=== PATIENT | male | born 1955 | race Two or more races ===

== ENCOUNTER 2024-08-25 17:25 | Inpatient (IN) | payer OTHER ==
[~2024-08-25] VITALS: Ht 180.3 cm; Wt 88.5 kg
--- NOTE | 2024-08-25 17:36 | NUR ---
PACIENTE ALERTA Y ORIENTADO X3. REFERIDO POR DR LUZ STOCKTON PARA TRATAMIENTO Y ADMISION POR BACTERIA. SE ESTIMAN VITALES Y SE UBICA.
[2024-08-25] MEDS ORDERED: COZAAR100 MG PO (17:40)
[2024-08-25] MEDS ORDERED: HORIZANT300 MG (17:41)
[2024-08-25] MEDS ORDERED: AMLODIPINE-OLM1 EAC2 PO (17:41)
[2024-08-25] MEDS ORDERED: FAMOtidine 10 MG/ML (4ML VIAL) IV ONE (18:30)
[2024-08-25] MEDS ORDERED: VANCOMYCIN HCL 1,000 MG VIAL IV ONE (18:30)
--- NOTE | 2024-08-25 18:39 | NUR ---
SE EDUCA A PTE [facility] [place] [facility], SE MARCIA MEUSTRAS DE LABORATORIO UTILIZANDO MEDIDAS ASEPTICAS. SE COLOCA H/L KAMILLE DE EDEMA. SE ADMINISTRAN MEDICAMENTOS CHRISTIE ORDEN MEDICA.
[2024-08-25] MEDS ORDERED: CEFEPIME HCL 2,000 MG VIAL IV SCH (18:52)
[2024-08-25 18:54] LABS: HEMATOCRIT 41.5 % (39.0-48.0); HEMOGLOBIN 14.6 g/dL (13-16.00); MEAN CORPUSCULAR HEMOGLOBIN 32.3 pg (27.00-32.0); MEAN CORPUSCULAR HGB CONC 35.1 g/dl (32.0-36.0); PLATELET COUNT 192 K/uL (150-450); RED CELL DISTRIBUTION WIDTH 13.8 % (11.5-14.5)
[2024-08-25 19:02] LABS: URINE APPEARANCE Clear; URINE BILIRRUBIN Negative (NEGATIVE); URINE BLOOD Negative; URINE COLOR Yellow; URINE GLUCOSE Negative (NEGATIVE); URINE KETONE Negative (NEGATIVE); URINE LEUKOCYTE Negative; URINE NITRATE Negative; URINE PROTEIN Negative (NEGATIVE); URINE UROBILINOGEN 0.2 E.U./dl
[2024-08-25 19:07] LABS: URINE BACTERIA 7.3 uL (0.0-1933); URINE RBC 3.2 uL (0.0-20.8)
[2024-08-25 19:13] LABS: INR 1.05; PARTIAL THROMBOPLASTIN TIME 26.6 SECONDS (22.0-34.0); PROTHROMBIN TIME 11.4 SECONDS (9.0-11.5)
[2024-08-25 19:17] LABS: ALBUMIN 4.4 gm/dL (3.4-5.0); BILIRUBIN TOTAL 0.74 mg/dL (0.3-1.2); CALCIUM 9.4 mg/dL (8.5-10.1); CREATININE SERUM 1.3 mg/dL (0.70-1.30); GFR 54.73; GLOBULINA 3.9 G/DL (2.4-3.5); POTASSIUM 4.13 mEq/L (3.5-5.1); TOTAL PROTEIN 8.3 gm/dL (6.4-8.2)
[2024-08-25 19:28] LABS: URINE CAST 0.29 uL (0.0-1.40); URINE EPITHELIAL CELLS 0.9 uL (0.0-38.8); URINE WBC 1.7 uL (0.0-23.2)
[2024-08-25] MEDS ORDERED: ACETAMINOPHEN 325 MG TABLET PO PRN (20:30)
[2024-08-25] MEDS ORDERED: 0.9 % SODIUM CHLORIDE 1,000 ML IV SCH (20:30)
[2024-08-25] MEDS ORDERED: AMLODIPINE BESYLATE 5 MG TABLET PO SCH (21:00)
[2024-08-26 01:02] VITALS: BP 155/89; O2SAT 96
[2024-08-26] MEDS ORDERED: GABAPENTIN 100 MG CAPSULE PO SCH (09:00)
[2024-08-26] MEDS ORDERED: FAMOTIDINE/PF 20 MG/2 ML VIAL IV SCH (09:00)
[2024-08-26] MEDS ORDERED: LOSARTAN POTASSIUM 100 MG TABLET PO SCH (09:00)
[2024-08-26 14:58] VITALS: BP 170/94; O2SAT 95
[2024-08-26] MEDS ORDERED: ACETAMINOPHEN 500 MG GEL..CAP PO PRN (15:30)
[2024-08-26 16:00] VITALS: BP 166/88; O2SAT 97
[2024-08-27 00:37] VITALS: BP 119/65; O2SAT 96
[2024-08-27] MEDS ORDERED: CEFEPIME HCL 2,000 MG VIAL IV SCH (01:00)
[2024-08-27 08:00] VITALS: BP 157/90; O2SAT 97
[2024-08-27 17:29] VITALS: BP 158/87; O2SAT 97
[2024-08-28 00:37] VITALS: BP 164/94; O2SAT 98
[2024-08-28 08:00] VITALS: BP 146/88; O2SAT 97
[2024-08-28] MEDS ORDERED: KETOROLAC TROMETHAMINE 30 MG VIAL IM STA (08:28)
[2024-08-28 09:18] LABS: HEMOGLOBIN 14.5 g/dL (13-16.00); MEAN CELL VOLUME 93.2 fL (80.0-100.00); MEAN CORPUSCULAR HEMOGLOBIN 32.3 pg (27.00-32.0); MEAN CORPUSCULAR HGB CONC 34.6 g/dl (32.0-36.0); PLATELET COUNT 161 K/uL (150-450); RED BLOOD COUNT 4.51 M/uL (4.00-6.00); RED CELL DISTRIBUTION WIDTH 13.8 % (11.5-14.5)
[2024-08-28 09:41] LABS: ALBUMIN 3.5 gm/dL (3.4-5.0); BILIRUBIN TOTAL 0.73 mg/dL (0.3-1.2); CALCIUM 8.8 mg/dL (8.5-10.1); CREATININE SERUM 0.82 mg/dL (0.70-1.30); GFR 93.15; GLOBULINA 3.4 G/DL (2.4-3.5); POTASSIUM 3.86 mEq/L (3.5-5.1); TOTAL PROTEIN 6.9 gm/dL (6.4-8.2)
[2024-08-28] MEDS ORDERED: KETOROLAC TROMETHAMINE 30 MG VIAL IM PRN (12:00)
[2024-08-28 17:05] VITALS: BP 147/87; O2SAT 95
[2024-08-28] MEDS ORDERED: FAMOtidine 20 MG TABLET PO SCH (21:00)
[2024-08-29 00:42] VITALS: BP 137/87; O2SAT 98
[2024-08-29 08:00] VITALS: BP 149/87; O2SAT 97
[2024-08-29] MEDS ORDERED: LACTULOSE 20 G/30 ML BLIST.PACK PO SCH (09:00)
[2024-08-29 16:48] VITALS: BP 167/64; O2SAT 98
[2024-08-30 00:22] VITALS: BP 150/90; O2SAT 96
[2024-08-30 09:02] VITALS: BP 160/92; O2SAT 96
[2024-08-30 16:29] VITALS: BP 122/67; O2SAT 96
[2024-08-31 00:30] VITALS: BP 135/83; O2SAT 98
[2024-08-31 06:58] LABS: HEMATOCRIT 38.1 % (39.0-48.0); HEMOGLOBIN 13.4 g/dL (13-16.00); MEAN CELL VOLUME 91.8 fL (80.0-100.00); MEAN CORPUSCULAR HEMOGLOBIN 32.3 pg (27.00-32.0); MEAN CORPUSCULAR HGB CONC 35.2 g/dl (32.0-36.0); PLATELET COUNT 152 K/uL (150-450); RED BLOOD COUNT 4.15 M/uL (4.00-6.00)
[2024-08-31 07:48] LABS: ALBUMIN 3.1 gm/dL (3.4-5.0); ALKALINE PHOSPHATASE 84 U/L (50-136); ALT/SGPT 23 U/L (12-78); ANION GAP 9 (10.0-20.0); AST/SGOT 15 U/L (15-37); BILIRUBIN TOTAL 0.76 mg/dL (0.3-1.2); BLOOD UREA NITROGEN 22 mg/dL (7-18); BUN CREA RATIO 27 (7.0-25.0); CALCIUM 8.7 mg/dL (8.5-10.1); CARBON DIOXIDE 28 mEq/L (21-32); CHLORIDE 109 mmol/L (98-107); CREATININE SERUM 0.83 mg/dL (0.70-1.30); GFR 91.86; GLOBULINA 3.2 G/DL (2.4-3.5); GLUCOSE FASTING 112 mg/dL (65-100); OSMOLALITY SERUM 287 MOSM/KG (275-295); POTASSIUM 4.13 mEq/L (3.5-5.1); SODIUM 142 mmol/L (136-145); TOTAL PROTEIN 6.3 gm/dL (6.4-8.2)
[2024-08-31 07:50] LABS: C-REACTIVE PROTEIN < 0.29 MG/DL (0.00-0.29)
[2024-08-31 09:03] VITALS: BP 160/87; O2SAT 97
[2024-08-31 16:59] VITALS: BP 165/92; O2SAT 97
[2024-09-01] VITALS: BP 136/79; O2SAT 95
[2024-09-01 09:01] VITALS: BP 140/77; O2SAT 98
[2024-09-01 16:00] VITALS: BP 128/86; O2SAT 97
[2024-09-02 02:08] VITALS: BP 150/79; O2SAT 94
[2024-09-02 07:35] LABS: HEMATOCRIT 36.9 % (39.0-48.0); HEMOGLOBIN 13.3 g/dL (13-16.00); MEAN CORPUSCULAR HEMOGLOBIN 32.7 pg (27.00-32.0); PLATELET COUNT 152 K/uL (150-450); RED BLOOD COUNT 4.05 M/uL (4.00-6.00); RED CELL DISTRIBUTION WIDTH 14.2 % (11.5-14.5)
[2024-09-02 07:43] LABS: CALCIUM 8.6 mg/dL (8.5-10.1); CREATININE SERUM 0.89 mg/dL (0.70-1.30); GFR 84.75; POTASSIUM 3.86 mEq/L (3.5-5.1)
[2024-09-02 09:00] VITALS: BP 150/83; O2SAT 97
[2024-09-02 16:00] VITALS: BP 138/76; O2SAT 97
[2024-09-03] VITALS: BP 134/74; O2SAT 99
[2024-09-03 08:00] VITALS: BP 146/83; O2SAT 98
[2024-09-03 16:31] VITALS: BP 143/77; O2SAT 99
[2024-09-04] VITALS: BP 141/84; O2SAT 96
[2024-09-04 08:00] VITALS: BP 162/90; O2SAT 97
[2024-09-04] MEDS ORDERED: CEFEPIME HCL 2,000 MG VIAL IV SCH (13:00)
[2024-09-04 16:00] VITALS: BP 162/84; O2SAT 97
[2024-09-05 00:45] VITALS: BP 136/75; O2SAT 97
[2024-09-05 06:48] LABS: HEMATOCRIT 38.6 % (39.0-48.0); HEMOGLOBIN 13.8 g/dL (13-16.00); MEAN CELL VOLUME 91.1 fL (80.0-100.00); MEAN CORPUSCULAR HEMOGLOBIN 32.6 pg (27.00-32.0); MEAN CORPUSCULAR HGB CONC 35.8 g/dl (32.0-36.0); PLATELET COUNT 149 K/uL (150-450); RED BLOOD COUNT 4.24 M/uL (4.00-6.00)
[2024-09-05 07:44] LABS: ALBUMIN 3.3 gm/dL (3.4-5.0); BILIRUBIN TOTAL 0.89 mg/dL (0.3-1.2); CALCIUM 8.9 mg/dL (8.5-10.1); CREATININE SERUM 0.88 mg/dL (0.70-1.30); GFR 85.86; GLOBULINA 3.4 G/DL (2.4-3.5); POTASSIUM 3.96 mEq/L (3.5-5.1); TOTAL PROTEIN 6.7 gm/dL (6.4-8.2)
[2024-09-05 09:03] VITALS: BP 145/94; O2SAT 97
== END 2024-09-05 10:36 | disposition home or self-care (01) | DRG 920 ==
LOC: ER 17:28 → SURH 20:29
PROVIDERS: General Practice; Student in an Organized Health Care Education/Training Program; ADMIT Internal Medicine; ATTEND Internal Medicine
PROC: BW2GYZZ Computerized Tomography (CT Scan) of Pelvic Region using Other Contrast (ICD-10-PCS; 2024-08-29)
PROC: 0W9F30Z Drainage of Abdominal Wall with Drainage Device, Percutaneous Approach (ICD-10-PCS; principal; 2024-08-31)
DX: L76.32 Postprocedural hematoma of skin and subcutaneous tissue following other procedure (principal); L02.211 Cutaneous abscess of abdominal wall; T81.41XA Infection following a procedure, superficial incisional surgical site, initial encounter; R59.0 Localized enlarged lymph nodes; K59.00 Constipation, unspecified